=== PATIENT | female | born 1960 | race Caucasian/White ===

== ENCOUNTER → 2017-08-24 | Outpatient (CLI) | payer MEDICARE ==
[~2017-08-24] MED LIST: ALBU90OI; ALBU90OI6 INH; BUPR150ER PO; ESCI5; FLUSAL2505; FLUSAL2505 INH; GABA300 PO; Ipratr-Albuterol3 ML IH; LANS15EC; Norco 5-325 Ta1 EACH PO; Prednisone20 MG PO; SERT100 PO; SERT50 PO; Zithromax250 MG PO
[2017-08-24 15:38] LABS: Bilirubin, Urine Neg (Neg); Blood, Urine 3+ (Neg); Glucose Qualitative, Urine Neg (Neg); Ketones, Urine Neg (Neg); Leukocyte Esterase, Urine 1+ (Neg); Nitrite, Urine Neg (Neg); Protein, Urine Neg (Neg); Specific Gravity, Urine 1.025 (1.003-1.022); Urobilinogen, Urine NORM (Normal)
[2017-08-24 15:47] LABS: Appearance, Urine Clear (Clear); Color, Urine Yellow (P-Yellow)
[2017-08-24 15:48] LABS: Bacteria Mod /hpf; Squamous Epithelial Cells Rare /hpf (Few); White Blood Cells, Urine 0-2 /hpf (0-5)
== END ==
LOC: LAB 15:30
PROVIDERS: Registered Nurse
DX: R35.0 Frequency of micturition (principal); R39.15 Urgency of urination
CPT/HCPCS: 81001; 87077; 87086; 87186

== ENCOUNTER → 2018-05-08 | Outpatient (CLI) | payer MEDICARE | LOC: LAB SHORT 17:52 → LAB 17:52 | DX: R35.0 Frequency of micturition (principal) | CPT/HCPCS: 87077; 87086; 87186 ==

== ENCOUNTER → 2020-06-10 | Outpatient (CLI) | payer MEDICARE ==
[2020-06-19 12:07] LABS: Stool Occult Bld Immuno 1 Positive (NEGATIVE)
== END | disposition home or self-care (01) ==
LOC: LAB 14:43 → LAB SHORT 14:43
PROVIDERS: Registered Nurse
DX: Z12.11 Encounter for screening for malignant neoplasm of colon (principal)
CPT/HCPCS: G0328

== ENCOUNTER → 2023-04-04 | Outpatient (CLI) | payer MEDICARE, OTHER ==
[2023-04-10 07:17] LABS: Stool Occult Bld Immuno 1 Positive (NEGATIVE)
== END ==
LOC: PLD 12:00 → LAB SHORT 12:00
PROVIDERS: Registered Nurse
DX: Z12.11 Encounter for screening for malignant neoplasm of colon (principal); Z12.12 Encounter for screening for malignant neoplasm of rectum
CPT/HCPCS: G0328

== ENCOUNTER 2023-08-13 07:06 | Day surgery (SDC) | payer MEDICARE, OTHER ==
[~2023-08-13] VITALS: Ht 160 cm; Wt 93.9 kg
[~2023-08-13 07:06] MED LIST changes: +BUPRENORPHIN-N1 EAC1 SL; +FURO20 PO; +POTCHL20ER PO; +QUETIAPINE FUMA50 M2
[2023-08-13 07:22] VITALS: BP 124/81
[2023-08-13] MEDS ORDERED: TRELEGY ELLIPT1 EACH (07:36)
[2023-08-13] MEDS ORDERED: PROP10 PO (07:37)
--- NOTE | 2023-08-13 07:39 | NUR ---
PT HAS WHEEZES THROUGHOUT BILAT LUNGS ON INSPIRATION AND EXPIRATION. , RUBBING SOUNDS IN L LUNG THOUGHOUT THAT CLEARS WITH COUGH.
--- NOTE | 2023-08-13 08:28 | NUR ---
08/13/23 0828 Cristopher Foss History, Chart, Medications and Allergies reviewed before start of procedure.MONITOR INTACT WITH CONTINUOUS PULSE OXIMETRY, CONTINUOUS END TITAL CO2, AND INTERMITTENT BLOOD PRESSURE.O2 VIA N/C INTACT THROUGHOUT SEDATION/PROCEDURE.3-LEAD EKG REVIEWED WITH PHYSICIAN PRIOR TO START OF PROCEDURE.See Anesthesia record.
[2023-08-13 09:10] VITALS: BP 136/97
[2023-08-13 09:28] VITALS: BP 146/89
--- NOTE | 2023-08-13 09:40 | NUR ---
Discharge instructions reviewed with patient. Patient verbalizes understanding. Copy given to patient to take home. Patient States Post-Procedure ride home has been arranged. Discharged via wheelchair to private car for ride home.
== END 2023-08-13 09:45 | disposition home or self-care (01) ==
LOC: ORSCMMR 07:06 → ORD 08:45 → ORSCMMR 08:45
PROVIDERS: Internal Medicine Gastroenterology
PROC: 0DB98ZX Excision of Duodenum, Via Natural or Artificial Opening Endoscopic, Diagnostic (ICD-10-PCS; principal; 2023-08-13 08:45)
PROC: 0DB78ZX Excision of Stomach, Pylorus, Via Natural or Artificial Opening Endoscopic, Diagnostic (ICD-10-PCS; principal; 2023-08-13 08:45)
PROC: 0DBL8ZX Excision of Transverse Colon, Via Natural or Artificial Opening Endoscopic, Diagnostic (ICD-10-PCS; principal; 2023-08-13 08:45)
DX: D50.0 Iron deficiency anemia secondary to blood loss (chronic) (principal); C18.4 Malignant neoplasm of transverse colon; D12.3 Benign neoplasm of transverse colon; J44.9 Chronic obstructive pulmonary disease, unspecified; Z99.81 Dependence on supplemental oxygen; G47.33 Obstructive sleep apnea (adult) (pediatric); F41.8 Other specified anxiety disorders; Z79.899 Other long term (current) drug therapy; Z87.891 Personal history of nicotine dependence; Z68.36 Body mass index [BMI] 36.0-36.9, adult
CPT/HCPCS: 88305; 88342; J2001; J2704; J7120

== ENCOUNTER 2023-09-11 06:05 | Inpatient (IN) | payer MEDICARE, OTHER ==
[~2023-09-11] VITALS: Ht 157.5 cm; Wt 98.0 kg
[2023-09-11] VITALS (27 sets, daily range): BP systolic 123–171; BP diastolic 76–104
[~2023-09-11 06:05] MED LIST changes: +ALBU90OI INH; +AMLODIPINE BES2.5 MG PO; +BUPRENORPHINE HC2 MG SL; +DULO60 PO; +DUO-NEB NEB; +NARCAN4 M1; +PROP10 PO; -QUETIAPINE FUMA50 M2; +QUETIAPINE FUMA50 M2 PO; +TRELEGY ELLIPT1 EACH INH
--- NOTE | 2023-09-11 06:52 | NUR ---
UPON AUSCULTATION RUBBING IS HEARD THROUGHOUT BILATERALLY, WHEEZES ON INSPIRATION IN R UPPER AND MID LUNG.
--- NOTE | 2023-09-11 08:20 | NUR ---
AFTER AUSCULATING LUNGS, ANESTHESIA NOTIFIED IN PREOP AND DUONEB ORDERED. PT ABLE TO DEEP BREATH, COUGH AND CLEAR LUNGS POST DUONEB. IMMEDIATELY AFTER ANESTHESIA LEFT BEDSIDE, PT NOTIFIED RN THAT SHE HAD ACTUALLY DRANK A VANILLA ENSURE AT 0430 TODAY AFTER PREVIOUSLY STATING SHE HAD BEEN NPO SINCE 09/10/2023. CIRCULATING RN, ANESTHESIA AND SURGEON NOTIFIED. RN GIVEN VERBAL ORDERS TO ADMIT PATIENT TO SURGICAL FLOOR TO WAIT UNTIL TIME ALLOTED PER PROTOCOL MET FOR NPO STATUS TO CONTINUE WITH SURGERY. PT ENCOURAGED TO REMAIN NPO WHILE WAITING FOR PROCEDURE, BEDSIDE RN ON SURGICAL FLOOR NOTIFIED AND ORDERS PLACED.
--- NOTE | 2023-09-11 08:21 | NUR ---
PT ARRIVED TO RM [id number] TO AWAIT SURGERY RESTING IN BED. ORIENTED TO USE OF CALL LIGHT.
--- NOTE | 2023-09-11 09:14 | NUR ---
PT RESTING ON R SIDE, EYES CLOSED. BREATHING E/U.
--- NOTE | 2023-09-11 10:53 | NUR ---
SITTING ON EDGE OF BED. CALL LIGHT IN REACH.
--- NOTE | 2023-09-11 12:04 | NUR ---
RESTING IN BED, FAMILY BEDSIDE.
--- NOTE | 2023-09-11 21:48 | NUR ---
ASSUMPTION OF CARE/TRANSFER NOTE PT TRANSFERRED TO PCU 14 AT SHIFT CHANGE FROM PACU. PT A&O. ABLE TO MAKE NEEDS KNOWN. MEDICATED PER EMAR FOR PAIN. PT REPORTING SORENESS/TIGHTNESS IN ABDOMEN RATING 9-10/10. LR INFUSING PER EMAR. HTN NOTED. OTHER VITALS STABLE. ON 3L VIA NC, WHICH IS BASELINE. PUREWICK IN PLACE; VOIDING WELL. LAP/SURG SITES ON ABDOMEN WITH SURGICAL GLUE NOTED; NO DISCOLORATION OR BLEEDING NOTED; SITES DRY AND INTACT. BS+. NO NAUSEA NOTED WITH WATER. BED IN LOWEST POSITION AND CALL LIGHT WITHIN REACH.
[2023-09-12] VITALS (8 sets, daily range): BP systolic 123–148; BP diastolic 67–97
--- NOTE | 2023-09-12 04:19 | NUR ---
SHIFT SUMMARY NO ACUTE CHANGES OVERNIGHT. VITALS STABLE. CONTINUES TO BE ON 3L VIA NC. MILD BRUISING/REDNESS AROUND LAP/INCISION SITES. TENDERNESS WITH PALPATION OF ABDOMEN. MEDICATING PER EMAR FOR PAIN. ASSISTING PT WITH REPOSITIONING D/T PAIN. PUREWICK IN PLACE. BED IN LOWEST POSITION AND CALL LIGHT WITHIN REACH. THIS RN WILL REPORT TO ONCOMING DAYSHIFT RN.
[2023-09-12 05:36] LABS: BASOPHILS ABSOLUTE AUTO 0.05 K/mm3 (0.00-0.23); BASOPHILS PERCENT AUTO 0 % (0-2); EOSINOPHILS PERCENT AUTO 0 % (0-6); Hematocrit 29.9 % (33.0-51.0); Hemoglobin 9.1 g/dL (11.5-16.0); IMMATURE GRAN PERCENT AUTO 1 % (0-1); LYMPHOCYTES ABSOLUTE AUTO 1.87 K/mm3 (0.84-5.20); LYMPHOCYTES PERCENT AUTO 12 % (21-46); MONOCYTES ABSOLUTE AUTO 1.36 K/mm3 (0.16-1.47); MONOCYTES PERCENT AUTO 9 % (4-13); Mean Corpuscular HGB 25.1 pg (26.0-34.0); Mean Corpuscular HGB Conc 30.4 g/dL (31.5-36.5); Mean Corpuscular Volume 83 fL (80-100); Mean Platelet Volume 8.9 fL (9.1-12.4); NEUTROPHILS PERCENT AUTO 78 % (41-73); Platelet Count 326 K/mm3 (150-400); RDW Coefficient Variation 15.9 % (11.7-14.2); RDW Standard Deviation 48.4 fL (35.1-46.3); Red Blood Cell Count 3.62 M/mm3 (3.80-5.20); White Blood Cell Count 15.18 K/mm3 (4.00-11.30)
[2023-09-12 06:37] LABS: Bun/Creatinine Ratio 16.7 (12.0-20.0); Calcium, Blood 8.4 mg/dL (8.5-10.1); Creatinine, Blood 0.6 mg/dL (0.40-1.00); Magnesium, Blood 2.2 mg/dL (1.6-2.4); Potassium, Blood 3.9 mmol/L (3.5-5.5)
--- NOTE | 2023-09-12 12:12 | NUR ---
NURSING PCU TRANSFER SUMMARY: Telephone report given to accepting surgical floor RN. No s/s of acute distress at this time. Will transport patient via bed.
--- NOTE | 2023-09-12 12:21 | NUR ---
NURSING PCU TRANSFER SUMMARY: Telephone report given to accepting surgical floor RN. No s/s of acute distress at this time. Will transport patient via wheelchair accompanied by PCT.
--- NOTE | 2023-09-12 13:26 | NUR ---
Pt. is awake in bed when she welcomes my visit. Ptt. is pleasant. Facilitate a life review and Pt. shares about her yanci that dates back in her family to her grandfather. Consider matters of yanci and belief. Pt. displays evidence of being, positive, optimistic, aware, and engaging. Pt. verbalized concerns about her disabled son at home. Prayed with Pt. about her recovery as well as for her son. Pt. verbalized gratitude for the spiritual care visit and welcomed this bale piler to return.
--- NOTE | 2023-09-12 17:20 | NUR ---
TRANSFER: REPORT RECEIVED FROM [employer]. PT TO UNIT AT 1420. PT ABLE TO AMBULATE TO BED FROM WHEELCHAIR. VSS, TELE BOX VERIFIED WITH TECH. NSR 99. CONT. BIO OX APPLIED. PT ON 3L AND 97%. SURGICAL SITES WNL. PT REPORTS PAIN AT THIS TIME AND MEDICATED PER EMAR. PT ORIENTED TO ROOM AND CALL LIGHT.
--- NOTE | 2023-09-12 17:23 | NUR ---
SUMMARY: NO ACUTE CHANGE SINCE TRANSFER. PT POD1 LAP R HEMICOLECTOMY. PT DIET ADVANCED TO REG FOR DINNER AND PT TOLERATING WELL. PAIN APPEARS TO BE WELL MANAGED. PT SBA IN ROOM WITH FWW, MOVING WELL. NO SAFETY CONCERNS.
[2023-09-13 04:44] VITALS: BP 114/68
--- NOTE | 2023-09-13 06:30 | NUR ---
POD 2 S/P LPA COLECTOMY. PT VSS T/O NIGHT; SATS >90% ON 3LO2 PER BASELINE (DID DROP TO 85% WHEN NC REMIVED WHILE SLEEPING). PT DENIED SOB, REP COUGH BECOMING MORE PRODUCTIVE. INCISIONS CDI W/MILD BRUISING. ABD REMAINS MOD DISTENDED, PT MARGE 1/2 SANDWICH, DENIED N/V, HAD 2 UNFORMED BM, IS VOIDING URINE W/O DIFFICULTY. PT AMB INDEP IN ROOM, MARGE WELL.
[2023-09-13 06:31] LABS: BASOPHILS ABSOLUTE AUTO 0.04 K/mm3 (0.00-0.23); BASOPHILS PERCENT AUTO 1 % (0-2); EOSINOPHILS ABSOLUTE AUTO 0.35 K/mm3 (0.00-0.68); EOSINOPHILS PERCENT AUTO 4 % (0-6); Hemoglobin 8.1 g/dL (11.5-16.0); IMMATURE GRAN ABSOLUTE AUTO 0.03 K/mm3 (0.00-0.10); IMMATURE GRAN PERCENT AUTO 0 % (0-1); LYMPHOCYTES ABSOLUTE AUTO 2.34 K/mm3 (0.84-5.20); LYMPHOCYTES PERCENT AUTO 27 % (21-46); MONOCYTES ABSOLUTE AUTO 0.96 K/mm3 (0.16-1.47); MONOCYTES PERCENT AUTO 11 % (4-13); Mean Corpuscular HGB 24.6 pg (26.0-34.0); Mean Corpuscular HGB Conc 28.9 g/dL (31.5-36.5); Mean Corpuscular Volume 85 fL (80-100); Mean Platelet Volume 9.1 fL (9.1-12.4); NEUTROPHILS ABSOLUTE AUTO 4.96 K/mm3 (1.96-9.15); NEUTROPHILS PERCENT AUTO 57 % (41-73); Platelet Count 280 K/mm3 (150-400); RDW Coefficient Variation 15.9 % (11.7-14.2); RDW Standard Deviation 49.6 fL (35.1-46.3); Red Blood Cell Count 3.29 M/mm3 (3.80-5.20); White Blood Cell Count 8.68 K/mm3 (4.00-11.30)
[2023-09-13 07:20] VITALS: BP 111/61
[2023-09-13 11:40] LABS: Hematocrit 29.3 % (33.0-51.0); Hemoglobin 8.5 g/dL (11.5-16.0)
[2023-09-13] MEDS ORDERED: OXYC5 PO (12:47)
--- NOTE | 2023-09-13 14:31 | NUR ---
DISCHARGE SUMMARY POD2 ROBOTIC LAP COLLECTOMY, A/OX4, VSS, TOLERATING PO, PAIN WELL MANAGED, INDEPENDENT IN THE ROOM, ABDOMINAL LAP SITES C/D/I, DENIES SOB, STABLE ON 3L NC WHICH IS HER BASELINE. REMOVED IV ACCESS WHILE DISCUSSING DISCHARGE INSTRUCTIONS WHICH INCLUDED HOME CARE, MEDICATIONS, AND FOLLOW UP APPOINTMENTS, NO QUESTIONS AT THIS TIME. PT LEFT VIA WC TO PRIVATE AUTO TO GO HOME.
== END 2023-09-13 14:18 | disposition home or self-care (01) | DRG 330 ==
LOC: SURS 06:05 → PRE IP 07:30 → SURS 08:24 → ICUE 15:13 → PCU 17:29 → SURS 09-12 12:32
PROVIDERS: ADMIT Surgery
PROC: 8E0W4CZ Robotic Assisted Procedure of Trunk Region, Percutaneous Endoscopic Approach (ICD-10-PCS; 2023-09-11)
PROC: 0DTF4ZZ Resection of Right Large Intestine, Percutaneous Endoscopic Approach (ICD-10-PCS; principal; 2023-09-11 12:30)
DX: C18.0 Malignant neoplasm of cecum (principal); D62 Acute posthemorrhagic anemia; J44.9 Chronic obstructive pulmonary disease, unspecified; F11.90 Opioid use, unspecified, uncomplicated; D50.9 Iron deficiency anemia, unspecified; F41.9 Anxiety disorder, unspecified; M54.50 Low back pain, unspecified; G89.29 Other chronic pain; I10 Essential (primary) hypertension; F32.9 Major depressive disorder, single episode, unspecified; E66.9 Obesity, unspecified; F43.10 Post-traumatic stress disorder, unspecified; G47.30 Sleep apnea, unspecified; Z90.710 Acquired absence of both cervix and uterus; Z98.51 Tubal ligation status; Z87.891 Personal history of nicotine dependence; Z99.81 Dependence on supplemental oxygen; Z88.8 Allergy status to other drugs, medicaments and biological substances; Z68.39 Body mass index [BMI] 39.0-39.9, adult
CPT/HCPCS: 36415; 80048; 82947; 83735; 85014; 85018; 85025; 88309; 94640; 94664; 94762; 97116; 97161; A9270; J0694; J1100; J1170; J1644; J1650; J1790; J2250; J2405; J2704; J2765; J3010; J7120

== ENCOUNTER 2024-10-21 06:08 | Day surgery (SDC) | payer MEDICARE, OTHER ==
[~2024-10-21] VITALS: Ht 160 cm; Wt 95.7 kg
[~2024-10-21 06:08] MED LIST changes: +ALPR.25 PO; +OXYC5 PO
[2024-10-21] MEDS ORDERED: Lactated Ringer's 1,000 ML IV SCH (06:10)
--- NOTE | 2024-10-21 06:34 | NUR ---
Ambulatory in Day SurgeryPre-Op teaching done. Pt verbalizes understanding. History, Chart, Medications and Allergies reviewed before start of procedure.Patient confirms NPO status and agrees with scheduled surgery. Patient States Post-Procedure ride home has been arranged.PT IS ON 3L/MIN 02 VIA IN "24-7"
[2024-10-21 06:46] VITALS: BP 142/84
--- NOTE | 2024-10-21 06:47 | NUR ---
10/21/24 [address] PERKINS, SEE ANESTHESIA RECORDS.
--- NOTE | 2024-10-21 06:54 | NUR ---
LUNGS COARSE ON IN AND EX-ROBLEDO. PT HAS PRODUTIVE COUGH. PT IS VERY SOB W/WALKING FROM BR TO BED. ONCE SETTLED IN BED, NOT SOB.
[2024-10-21] MEDS ORDERED: Ipratropium/Albuterol SulF 2.5-0.5MG/3 ML Amp INH ONE (07:00)
--- NOTE | 2024-10-21 07:05 | NUR ---
LIZBETH DAILYRABELINDA GIVEN
[2024-10-21] MEDS ORDERED: propofoL 60 ML IV ONE (07:08)
[2024-10-21 08:11] VITALS: BP 114/72
== END 2024-10-21 08:31 | disposition home or self-care (01) ==
LOC: ORSCMMR 06:08 → ORD 07:30 → ORSCMMR 08:31
PROVIDERS: Internal Medicine Gastroenterology
PROC: 0DBC8ZX Excision of Ileocecal Valve, Via Natural or Artificial Opening Endoscopic, Diagnostic (ICD-10-PCS; principal; 2024-10-21 07:30)
DX: R19.4 Change in bowel habit (principal); K63.5 Polyp of colon; Z85.038 Personal history of other malignant neoplasm of large intestine; J44.9 Chronic obstructive pulmonary disease, unspecified; I10 Essential (primary) hypertension; G47.33 Obstructive sleep apnea (adult) (pediatric); F41.8 Other specified anxiety disorders; E66.9 Obesity, unspecified; Z68.37 Body mass index [BMI] 37.0-37.9, adult; Z79.899 Other long term (current) drug therapy; Z87.891 Personal history of nicotine dependence
CPT/HCPCS: 88305; J2704; J7120